=== PATIENT | male | born 1990 | race Two or more races ===

== ENCOUNTER 2017-02-22 06:23 | Emergency (ER) | payer OTHER ==
[~2017-02-22] VITALS: Ht 162.6 cm; Wt 4.5 kg
[2017-02-22 06:23] VITALS: BP 126/78
[2017-02-22] MEDS ORDERED: ACETAMINOPHEN ES 500 MG TABLET ONE (06:26)
[2017-02-22] MEDS ORDERED: ACETAMINOPHEN ES 500 MG TABLET PO ONE ×2 (06:30→07:00)
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
== END 2017-02-22 07:04 ==
LOC: ER 06:25
DX: S02.2XXA Fracture of nasal bones, initial encounter for closed fracture (principal); Y04.0XXA Assault by unarmed brawl or fight, initial encounter; Y92.89 Other specified places as the place of occurrence of the external cause; Y93.89 Activity, other specified; Y99.8 Other external cause status
CPT/HCPCS: 70160; 99284; A4606; Z7610